=== PATIENT | male | born 1940 | race Caucasian/White ===

== ENCOUNTER → 2016-12-23 | Outpatient (CLI) | payer OTHER ==
[~2016-12-23] MED LIST: GADOBUTROL 10 ML VIAL IVP ONE
== END ==
LOC: FIMAGING 19:37
PROVIDERS: ATTEND Physician Assistant
DX: H91.8X2 Other specified hearing loss, left ear (principal)
CPT/HCPCS: 70553; A9585

== ENCOUNTER 2017-08-01 18:08 | Emergency (ER) | payer OTHER ==
[2017-08-01] MEDS ORDERED: FLUORESCEIN SODIUM 1 MG STRIP OP ONE (18:39)
[2017-08-01] MEDS ORDERED: PROPARACAINE 0.5% 15 ML OPHT DROP ONE (18:39)
--- NOTE | 2017-08-01 18:58 | EDPHY ---
H & P Stated Complaint: Something in R eye since ~noon Time Seen by Provider: 08/01/17 18:57 HPI/ROS: HPI: This is a 77-year-old male who presents Chief Complaint: Something in R eye since ~noon Location: Right eye Quality: Foreign body sensation Duration: 5-7 hours Signs and Symptoms: No visual floaters, no vision changes, no dizziness, no ocular drainage, no headache Timing: Sudden, intermittent in nature Severity: [id number] Context: Patient reports that he was working under his trailer using a drill when he believes some of the metal shavings fell into his eye. He immediately rinsed with water for several minutes with transient relief. Then several hours later he felt a foreign body sensation near the middle part of his eye. His looked at his eye and was unable to visualize anything. He did have cataract surgery in November. Denies any vision loss/headache/dizziness. Modifying Factors: Rinse thoroughly Comment: ROS: see HPI Constitutional: No fever, no chills, no weight loss Eyes: No blurred vision Respiratory: No shortness of breath, no cough Cardiovascular: No chest pain Gastrointestinal: No nausea, no vomiting, no diarrhea Genitourinary: No dysuria Extremities: No myalgias Neurologic: No weakness, no numbness Skin: No rashes Hematologic: No bruising, no bleeding MEDICAL/SURGICAL/SOCIAL HISTORY: Medical history: Generally healthy. Does not take any regular medications. Surgical history: Denies Social history: Visual Acuity: noted from Nurse's notes. Pupils: equal round and reactive to light. EOMI. Lids: no edema or swelling Skin: no proptosis, no periorbital erythema or swelling, no vesicles Conjunctivae: not injected, no discharge; no foreign body appreciated Cornea: exam with fluorescein shows small corneal abrasion around 3 o'clock Anterior chamber: normal, no hyphema or hypopyon Source: Patient Exam Limitations: No limitations - Personal History Current Tetanus Diphtheria and Acellular Pertussis (TDAP): Yes - Medical/Surgical History Other PMH: cholesterol - Social History Smoking Status: Former smoker Constitutional: Initial Vital Signs Temperature (C) 36.7 C 08/01/17 18:24 Heart Rate 68 08/01/17 18:24 Respiratory Rate 16 08/01/17 18:24 O2 Sat (%) 98 08/01/17 18:24 O2 Delivery Mode Room Air Allergies/Adverse Reactions: No Known Allergies Allergy (Unverified 08/01/17 18:24) Home Medications: Medication Instructions Recorded Simvastatin [Zocor] 20 mg PO 08/01/17 Medical Decision Making ED Course/Re-evaluation: No signs of foreign body/rust ring/ulcers Eye was anesthetized; fluorescein strip used; Small corneal abrasion appreciated near medial canthus on physical exam Given gentamicin eye drops Advised to follow up with Ophthalmology as previously planned on Thursday Differential Diagnosis: Differential diagnosis includes but is not limited to foreign body, corneal abrasion, episcleritis, conjunctivitis. Departure - Departure Disposition: Home, Routine, Self-Care Clinical Impression: Corneal abrasion, right Qualifiers: Encounter type: initial encounter Qualified Code(s): S05.01XA - Injury of conjunctiva and corneal abrasion without foreign body, right eye, initial encounter Condition: Good Instructions: Corneal Abrasion (ED) Additional Instructions: Please follow-up with sample preparation supervisor on Thursday as previously scheduled. Take all eye antibiotic drops as indicated. Referrals: Dickson Daniel MD [Primary Care Provider] - As per Instructions
[2017-08-01] MEDS ORDERED: GENTAMICIN 0.3% OINT PREPACK OPHT.OINT TAKEHOME ONE (19:08)
[2017-08-01] MEDS ORDERED: GENTAMICIN 0.3% DROPS PREPACK OPHT.BTL TAKEHOME ONE (19:16)
[2017-08-01 19:21] VITALS: BP 110/78; PULSE 69; RESP 15; TEMP 98.8; O2SAT 94
== END 2017-08-01 19:31 | disposition home or self-care (01) ==
DX: S05.01XA Injury of conjunctiva and corneal abrasion without foreign body, right eye, initial encounter (principal); Z87.891 Personal history of nicotine dependence; X58.XXXA Exposure to other specified factors, initial encounter